=== PATIENT | male | born 1965 | race Two or more races ===

== ENCOUNTER 2023-06-10 14:29 | Emergency (ER) | payer OTHER ==
[~2023-06-10] VITALS: Ht 162.6 cm; Wt 77.6 kg
[2023-06-10] MEDS ORDERED: SYNTHROID137 MCG (15:28)
[2023-06-10] MEDS ORDERED: DICLOFENAC POTA50 MG PO (18:06)
[2023-06-10] MEDS ORDERED: NORFLEX100MG PO (18:06)
== END 2023-06-10 18:21 | disposition home or self-care (01) ==
LOC: ER 14:30
DX: R52 Pain, unspecified (principal); T14.90XA Injury, unspecified, initial encounter; W19.XXXA Unspecified fall, initial encounter; Y93.79 Activity, other specified sports and athletics; Y92.89 Other specified places as the place of occurrence of the external cause; Y99.8 Other external cause status; E03.8 Other specified hypothyroidism